=== PATIENT | male | born 1975 | race Hispanic/Latino ===

== ENCOUNTER 2018-02-05 09:29 | Emergency (ER) | payer OTHER ==
[~2018-02-05] VITALS: Ht 167.6 cm; Wt 111.2 kg
[2018-02-05] MEDS ORDERED: LIDOCAINE 2%/ EPINEPHRINE 20ML MDV INJ ONE (10:00)
[2018-02-05] MEDS ORDERED: POVIDONE IODINE 10% 120 ML BTL EXT ONE (10:00)
[2018-02-05] MEDS ORDERED: DIPHTH/TETANUS/ACEL. PERTUSSIS 0.5 ML SYR IM ONE (10:00)
[2018-02-05 11:01] VITALS: BP 131/98
== END 2018-02-05 11:00 | disposition home or self-care (01) ==
LOC: FSED 09:29
DX: L02.416 Cutaneous abscess of left lower limb (principal); L03.116 Cellulitis of left lower limb; R03.0 Elevated blood-pressure reading, without diagnosis of hypertension
CPT/HCPCS: 82948; 87071; 87205; 99283